=== PATIENT | female | born 1990 ===

== ENCOUNTER 2021-08-07 11:58 | Inpatient (IN) | payer OTHER ==
[~2021-08-07] VITALS: Ht 167.6 cm; Wt 3.6 kg
[2021-08-14] MEDS ORDERED: FOLIC ACID0.8 MG PO (06:06)
[2021-08-17] MEDS ORDERED: IBUPROFEN800 MG PO (08:30)
[2021-08-17] MEDS ORDERED: FERROUS SULFAT325 MG PO (08:30)
== END 2021-08-17 14:03 | disposition home or self-care (01) | DRG 788 ==
LOC: OB/GYN 08-10 12:15 → LDR 08-14 05:34 → OB/GYN 08-14 20:47
PROVIDERS: ADMIT Specialist; ATTEND Specialist
PROC: 4A1HXFZ Monitoring of Products of Conception, Cardiac Rhythm, External Approach (ICD-10-PCS; 2021-08-14)
PROC: 10D00Z1 Extraction of Products of Conception, Low, Open Approach (ICD-10-PCS; principal; 2021-08-14 18:00)
DX: O76 Abnormality in fetal heart rate and rhythm complicating labor and delivery (principal); O42.02 Full-term premature rupture of membranes, onset of labor within 24 hours of rupture; Z37.0 Single live birth; Z3A.40 40 weeks gestation of pregnancy